=== PATIENT | female | born 1995 | race Caucasian/White ===

== ENCOUNTER 2017-10-23 08:41 | Emergency (ER) | payer OTHER ==
--- NOTE | 2017-10-23 10:59 | UC ---
Hand/Wrist HPI - HPI Summary HPI Summary: pt is c/o pain to her L wrist, points to ulnar side. states it began after she attempted to forcefully open a window 2 days ago. states it is hard to move the wrist side to side and up/down. - History Of Current Complaint Chief Complaint: UCUpperExtremity Stated Complaint: LEFT WRIST COMP Time Seen by Provider: 10/23/17 10:52 Hx Obtained From: Patient Hx Last Menstrual Period: one week Onset/Duration: Sudden Onset Pain Intensity: 8 Character Of Pain: Sharp, Aching Aggravating Factor(s): Movement Alleviating Factor(s): Rest Associated Signs And Symptoms: Positive: Swelling. Negative: Redness, Bruising , Fever, Weakness, Numbness/Tingling - Allergies/Home Medications Allergies/Adverse Reactions: Allergies Allergy/AdvReac Type Severity Reaction Status Date / Time No Known Allergies Allergy Verified 10/23/17 09:37 Home Medications: Home Medications medroxyPROGESTERone ACETATE* [DEPO-Provera] 150 mg IM SEE INSTRUCTIONS 10/23/17 [History Confirmed 10/23/17] PMH/Surg Hx/FS Hx/Imm Hx Previously Healthy: Yes - Surgical History Surgical History: Yes Surgery Procedure, Year, and Place: teeth extractions - Family History Known Family History: Positive: None - Social History Occupation: Employed Full-time Lives: With Family Alcohol Use: None Substance Use Type: None Smoking Status (MU): Light Every Day Tobacco Smoker Type: Cigarettes Amount Used/How Often: 1/2 pack daily - Immunization History Vaccination Up to Date: Yes Review of Systems Constitutional: Negative Skin: Negative Eyes: Negative ENT: Negative Respiratory: Negative Cardiovascular: Negative Gastrointestinal: Negative Genitourinary: Negative Motor: Negative Neurovascular: Negative Musculoskeletal: Other: - pain with mild swelling L wrist-ulnar side Neurological: Negative Psychological: Negative Is Patient Immunocompromised?: No All Other Systems Reviewed And Are Negative: Yes Physical Exam Triage Information Reviewed: Yes Appearance: Well-Appearing Vital Signs: Initial Vital Signs Temp 98.8 F 10/23/17 09:23 Pulse 72 10/23/17 09:23 Resp 18 10/23/17 09:23 BP 106/73 10/23/17 09:23 Pulse Ox 100 10/23/17 09:23 Vital Signs Reviewed: Yes Eyes: Positive: Conjunctiva Clear ENT: Positive: Normal ENT inspection Neck: Positive: Supple, Nontender, No Lymphadenopathy Respiratory: Positive: Lungs clear, Normal breath sounds Cardiovascular: Positive: RRR, No Murmur Abdomen Description: Positive: Nontender, No Organomegaly, Soft Bowel Sounds: Positive: Present Musculoskeletal: Positive: Other: - LUE: Shoulder, elbow and hand are atraumatic. L dorsal wrist ulnar side with slight swelling and tenderness just proximal to ulnar styloid process. carpals are non tender including snuff box. active rom is intact but worsens pain. hand has full s/v/m function. Neurological: Positive: Alert Psychological: Positive: Age Appropriate Behavior Skin Exam: Normal Diagnostics - Radiology No standard instances Radiology Interpretation Completed By: Radiologist - RADILULNAR DIASTASES(SEE REPORT) Hand/Wrist Course/Dx - Course Course Of Treatment: no fx, dislocation and no concern for infection. will splint, otc nsaid. - Differential Dx/Diagnosis Provider Diagnoses: Sprain L wrist Discharge - Sign-Out/Discharge Documenting (check all that apply): Discharge/Admit/Transfer - Discharge Plan Condition: Stable Disposition: HOME Patient Education Materials: Wrist Sprain (ED) Referrals: Maurilio Chavez MD [Medical Doctor] - Additional Instructions: FOLLOW UP DR CHAVEZ within 1 WEEK. WRIST SPLINT UNTIL CLEARED - Billing Disposition and Condition Condition: STABLE Disposition: HOME
[2017-10-23] MEDS ORDERED: Ibuprofen TAB* 400 MG PO ONE (11:09)
[2017-10-23 11:22] VITALS: BP 96/65
--- NOTE | 2017-10-23 11:37 | RAD ---
INDICATION: Ulnar aspect LEFT wrist pain following injury 2 days ago. COMPARISON: No relevant prior exams available on the [facility] for comparison. TECHNIQUE: AP, lateral, and oblique views LEFT wrist. REPORT: Suggestion of mild diastases at the distal radioulnar joint. Articular alignment is otherwise unremarkable. No cortical disruption or suspicious trabecular irregularity to suggest fracture. Unremarkable soft tissue contours. IMPRESSION: Mild diastases at the distal radioulnar joint suggests potential triangular fibrocartilage tear in the appropriate clinical setting.
== END 2017-10-23 11:55 | disposition home or self-care (01) ==
LOC: UCCORT 08:41
DX: S63.502A Unspecified sprain of left wrist, initial encounter (principal); X50.9XXA Other and unspecified overexertion or strenuous movements or postures, initial encounter; Y92.9 Unspecified place or not applicable; F17.210 Nicotine dependence, cigarettes, uncomplicated
CPT/HCPCS: 99212; A9270-GY; G0463

== ENCOUNTER 2018-11-05 10:01 | Emergency (ER) | payer OTHER ==
[2018-11-05 10:10] VITALS: BP 125/84
--- NOTE | 2018-11-05 10:23 | UC ---
Eye Complaint HPI - HPI Summary HPI Summary: Pt presents with c/o bilateral eye redness and disharge X 2 days. Pt states that bialteral eyes are burning and itchy with white colored discharge. pt has been using visine OTC eye drops with no improvement. Pt now states that eyes are "glued shut " upon waking in the morning. - History of Current Complaint Chief Complaint: UCEye Stated Complaint: BI LAT EYE CONCERN Time Seen by Provider: 11/05/18 10:12 Hx Obtained From: Patient Hx Last Menstrual Period: one week ?: No Onset/Duration: Sudden Onset, Lasting Days, Still Present Timing: Constant Severity Initially: Mild Severity Currently: Mild Pain Intensity: 0 Aggravating Factor(s): Nothing Alleviating Factor(s): Nothing Associated Signs And Symptoms: Positive: Drainage (Purulent) - Risk Factors Penetrating Injury Risk Factor: Negative Acute Glaucoma Risk Factors: Negative Optic Artery Occlusion Risk Factors: Negative - Allergies/Home Medications Allergies/Adverse Reactions: Allergies Allergy/AdvReac Type Severity Reaction Status Date / Time No Known Allergies Allergy Verified 11/05/18 10:07 PMH/Surg Hx/FS Hx/Imm Hx Previously Healthy: Yes - Surgical History Surgical History: Yes Surgery Procedure, Year, and Place: teeth extractions. tongue clipped - Family History Known Family History: Positive: Cardiac Disease - Social History Occupation: Employed Full-time Lives: With Family Alcohol Use: None Substance Use Type: None Smoking Status (MU): Light Every Day Tobacco Smoker Type: Cigarettes Amount Used/How Often: 1/2 pack daily Have You Smoked in the Last Year: Yes Household Exposure Type: Cigarettes - Immunization History Vaccination Up to Date: Yes Review of Systems All Other Systems Reviewed And Are Negative: Yes Constitutional: Positive: Negative Skin: Positive: Negative Eyes: Positive: Drainage, Eye Redness ENT: Positive: Negative Respiratory: Positive: Negative Cardiovascular: Positive: Negative Gastrointestinal: Positive: Negative Genitourinary: Positive: Negative Motor: Positive: Negative Neurovascular: Positive: Negative Musculoskeletal: Positive: Negative Neurological: Positive: Negative Psychological: Positive: Negative Is Patient Immunocompromised?: No Physical Exam Triage Information Reviewed: Yes Appearance: Well-Appearing Vital Signs: Initial Vital Signs Temp 97.2 F 11/05/18 10:07 Pulse 94 11/05/18 10:07 Resp 18 11/05/18 10:07 BP 125/84 11/05/18 10:07 Pulse Ox 98 05/14/19 10:07 Vital Signs Reviewed: Yes Eyes: Positive: Conjunctiva Inflamed, Discharge ENT Exam: Normal Dental Exam: Normal Neck exam: Normal Neck: Positive: Supple Respiratory: Positive: No respiratory distress Musculoskeletal Exam: Normal Neurological Exam: Normal Psychological Exam: Normal Skin Exam: Normal Eye Complaint Course/Dx - Differential Dx/Diagnosis Differential Diagnosis/HQI/PQRI: Conjunctivitis Provider Diagnosis: Conjunctivitis Discharge - Sign-Out/Discharge Documenting (check all that apply): Patient Departure All imaging exams completed and their final reports reviewed: No Studies - Discharge Plan Condition: Stable Disposition: HOME Prescriptions: Polymyx/Trimethoprim OPTH* [Polytrim OPHTH*] 2 drop BOTH EYES Q8H 7 Days #1 btl Patient Education Materials: Conjunctivitis (ED) Forms: *Work Release Referrals: [facility] [Outside] - If Needed No Primary Care Phys,NOPCP [Primary Care Provider] - Erick Hunter MD [Medical Doctor] - If Needed - Billing Disposition and Condition Condition: STABLE Disposition: Home
== END 2018-11-05 10:31 | disposition home or self-care (01) ==
LOC: UCCORT 10:01
DX: H10.9 Unspecified conjunctivitis (principal); F17.210 Nicotine dependence, cigarettes, uncomplicated
CPT/HCPCS: 99212; G0463